=== PATIENT | female | born 1985 | race Caucasian/White ===

== ENCOUNTER 2018-08-14 10:16 | Emergency (ER) | payer BC ==
[~2018-08-14] VITALS: Ht 160 cm; Wt 97.5 kg
[2018-08-14] MEDS ORDERED: NUVARING VAGIN1 EACH (10:30)
[2018-08-14 11:04] LABS: ABSOLUTE NEUTROPHILS 5.6 thou/uL (1.4-8.2); BASOPHILS 0.5 % (0.0-2.0); HEMATOCRIT 42.5 % (37.0-47.0); HEMOGLOBIN 14.8 gm/dL (12.0-15.0); LYMPHOCYTES 24.8 % (24.0-44.0); MCH 31.9 pg (26.0-34.0); MCHC 34.8 g/dL (28.0-37.0); MCV 91.5 fL (80.0-100.0); MONOCYTES 6.6 % (1.0-8.0); PLATELET COUNT 316 thou/uL (150-400); POLYS 65.1 % (36.0-66.0); RBC 4.65 mil/uL (4.20-5.00); WBC 8.6 thou/uL (4.0-11.0)
[2018-08-14 11:12] LABS: CALCIUM 9.3 mg/dL (8.5-10.1); CREATININE 0.9 mg/dL (0.6-1.0); POTASSIUM 4.3 mmol/L (3.5-5.1)
[2018-08-14 11:15] LABS: URIC ACID* 3.7 mg/dL (2.6-7.2)
[2018-08-14] MEDS ORDERED: MEDROLDOSEPACK PO (11:42)
[2018-08-14] MEDS ORDERED: TRAMADOL 50 MG50 MG PO (11:42)
[2018-08-14 12:15] VITALS: BP 137/94
== END 2018-08-14 12:16 | disposition home or self-care (01) ==
LOC: ER 10:16
PROVIDERS: Physician Assistant
DX: M25.532 Pain in left wrist (principal); M25.531 Pain in right wrist